=== PATIENT | male | born 1950 ===

== ENCOUNTER 2017-05-16 18:31 | Emergency (ER) | payer MEDICARE ==
[2017-05-16 18:32] VITALS: BMI 28.5
[2017-05-16 18:45] VITALS: RESP 16; TEMP 97.6; O2SAT 98
[2017-05-16] MEDS ORDERED: Sodium Chloride 0.9% 1,000 ML IV ONE (19:28)
[2017-05-16] MEDS ORDERED: Sodium Chloride 0.9% 1,000 ML ONE (19:38)
[2017-05-16 19:50] LABS: BASO # 0.1 K/uL (0.0-0.2); BASO % 1.4 % (0.0-2.0); EOS # 0.1 K/uL (0.0-0.7); EOS % 2.3 % (0.0-4.0); HEMATOCRIT 39.4 % (35.0-51.0); LYMPH # 1.8 K/uL (1.0-4.3); LYMPH % 39.4 % (20.0-40.0); MEAN CELL VOLUME 81.2 fL (80.0-94.0); MEAN CORPUSCULAR HGB CONC 32.1 g/dL (33.0-37.0); MONO # 0.4 K/uL (0.0-0.8); NRBC % 0.1 % (0.0-2.0); RED CELL DISTRIBUTION WIDTH 14.2 % (11.5-14.5); WHITE BLOOD COUNT 4.5 K/uL (4.8-10.8)
[2017-05-16 19:58] LABS: CHLORIDE 106 mmol/L (98-107); SODIUM 139 mmol/L (132-148)
[2017-05-16 20:00] LABS: BILIRUBIN,TOTAL 0.5 mg/dL (0.2-1.3); CARBON DIOXIDE 23 mmol/L (22-30); GFR AFRICAN-AMERICAN > 60
[2017-05-16 20:01] LABS: ALB/GLOB RATIO 1.3 (1.0-2.1); ALKALINE PHOSPHATASE 48 U/L (38-126); ALT/SGPT 23 U/L (21-72); AST/SGOT 28 U/L (17-59); BLOOD UREA NITROGEN 21 mg/dL (9-20); CALCIUM 9.3 mg/dl (8.6-10.4); GLUCOSE,RANDOM 111 mg/dL (75-110); TOTAL PROTEIN 7.4 g/dL (6.3-8.3)
[2017-05-16 20:50] VITALS: BP 112/62; PULSE 62
--- NOTE | 2017-05-16 21:32 | C.PDOC ---
History Of Present Illness Patient is a 66 year old male who presents to the ER with a complaint of intermittent dizziness and right rib pain for the past 3 days. Patient denies SOB, fever, cough, change with exertion, trauma, blurry vision or double vision. Chief Complaint (Nursing): Abdominal Pain History Per: Patient History/Exam Limitations: no limitations Onset/Duration Of Symptoms: Days (3) Current Symptoms Are (Timing): Still Present Location Of Pain/Discomfort: Other (Right rib pain) Radiation Of Pain To:: None Quality Of Discomfort: Unable To Describe Associated Symptoms: Other ((+) for dizziness. (-) for SOB, blurry vision, double vision, cough). denies: Fever Exacerbating Factors: None Alleviating Factors: None Recent travel outside of the [place]: No Past Medical History Vital Signs: Last Vital Signs Temp 97.6 F 05/16/17 20:48 Pulse 62 05/16/17 20:48 Resp 16 05/16/17 20:48 BP 112/62 05/16/17 20:48 Pulse Ox 98 05/16/17 22:01 - Medical History PMH: Diabetes, HTN, Hypercholesterolemia, Kidney Stones, Chronic Kidney Disease Surgical History: No Surg Hx - [facility] Procedures VACCINATION NEC (03/22/15) Family History: States: Unknown Family Hx - Social History Hx Alcohol Use: No Hx Substance Use: No - Immunization History Hx Tetanus Toxoid Vaccination: Yes Hx Influenza Vaccination: Yes Hx Pneumococcal Vaccination: Yes Review Of Systems Constitutional: Negative for: Fever Eyes: Negative for: Vision Change Respiratory: Negative for: Cough, Shortness of Breath, SOB with Excertion Musculoskeletal: Positive for: Other (Right Rib Pain) Neurological: Positive for: Dizziness Physical Exam - Physical Exam Appears: Non-toxic Skin: Normal Color, Warm, Dry Head: Atraumatic, Normacephalic Eye(s): bilateral: Normal Inspection, PERRL, EOMI Oral Mucosa: Moist Chest: Symmetrical, No Deformity Cardiovascular: Rhythm Regular, No Murmur Respiratory: Normal Breath Sounds, No Rales, No Rhonchi, No Wheezing Gastrointestinal/Abdominal: Soft, No Tenderness Neurological/Psych: Oriented x3, Normal Speech, Normal Cognition, Other (No focal deficits) ED Course And Treatment - Laboratory Results Result Diagrams: 05/16/17 19:47 05/16/17 19:47 ECG: Interpreted By Me, Viewed By Me ECG Rhythm: Sinus Rhythm (Normal) Interpretation Of ECG: Normal axis and intervals Rate From EC O2 Sat by Pulse Oximetry: 98 (Room air) Pulse Ox Interpretation: Normal - Radiology CXR: Interpreted by Me, Viewed By Me CXR Interpretation: Yes: No Acute Disease Progress Note: EKG and CXR ordered. Antivert and IV fluids administered. Reevaluation Time: 20:30 (Patient feels better, will discharge home and advise to follow up with PMD.) Reassessment Condition: Improved Disposition - Disposition Referrals: Judith Helm, [Non-Staff] - Disposition: HOME/ ROUTINE Disposition Time: 20:30 Condition: IMPROVED Additional Instructions: Thank you for letting us take care of you today. Your provider was Dr. Bailon. You were treated for dizziness. The emergency medical care you received today was directed at your acute symptoms. If you were prescribed any medication, please fill it and take as directed. It may take several days for your symptoms to resolve. Return to the Emergency Department if your symptoms worsen, do not improve, or if you have any other problems. Please contact your doctor or call one of the physicians/clinics you have been referred to that are listed on the Patient Visit Information form that is included in your discharge packet. Bring any paperwork you were given at discharge with you along with any medications you are taking to your follow up visit. Our treatment cannot replace ongoing medical care by a primary care provider (PCP) outside of the emergency department. Thank you for allowing the [facility] team to be part of your care today. Follow up with your doctor in 2-3 days for re-evaluation. Prescriptions: Betamethasone/Propylene Glyc [Betamethasone Dp Aug 0.05% Crm] 15 gm TP BID PRN # 1 cream..g. PRN Reason: Rash Meclizine [Meclizine*] 25 mg PO Q6 PRN #20 tab PRN Reason: Dizziness Instructions: Vertigo (ED) - Clinical Impression Clinical Impression: Vertigo - Scribe Statement The provider has reviewed the documentation as recorded by the Scribe Yoav Bertrand All medical record entries made by the Scribe were at my direction and personally dictated by me. I have reviewed the chart and agree that the record accurately reflects my personal performance of the history, physical exam, medical decision making, and the department course for this patient. I have also personally directed, reviewed, and agree with the discharge instructions and disposition.
--- NOTE | 2017-05-17 10:05 | RAD ---
PROCEDURE: CHEST RADIOGRAPH, 1 VIEW HISTORY: r/o infiltrate COMPARISON: None available. FINDINGS: LUNGS: The lungs are well inflated and clear. PLEURA: No pneumothorax or pleural fluid seen. CARDIOVASCULAR: Normal. OSSEOUS STRUCTURES: No significant abnormalities. VISUALIZED UPPER ABDOMEN: Normal. OTHER FINDINGS: None. IMPRESSION: No active pulmonary disease.
== END 2017-05-16 20:50 | disposition home or self-care (01) ==
LOC: C.ER 18:31
DX: R42 Dizziness and giddiness (principal)
CPT/HCPCS: 71010; 80053; 84484; 85025; 99284; J7040